=== PATIENT | male | born 1950 | race Caucasian/White ===

== ENCOUNTER 2016-09-28 00:16 | Inpatient (IN) | payer SELFPAY ==
[2016-09-28] MEDS ORDERED: THIAMINE HCL 100 MG TAB PO ONE (00:58)
[2016-09-28] MEDS ORDERED: FOLIC ACID 1 MG TAB PO ONE (00:59)
[2016-09-28 01:03] LABS: % IMMATURE GRANULYOCYTES 0.3 % (0.0-1.1); ABSOLUTE IMMATURE GRANULOCYTES 0.02 10^3/uL (0.00-0.10); ADD DIFF? NO; ADD MORPH? NO; ADD SCAN? NO; ATYPICAL LYMPHOCYTE FLAG 10 (0-99); FRAGMENT RBC FLAG 0 (0-99); HEMATOCRIT 36.5 % (40.0-51.0); HEMOGLOBIN 11.9 g/dL (13.7-17.5); LEFT SHIFT FLG 0 (0-99); LIPEMIA HEMOLYSIS FLAG 80 (0-99); MEAN CELL HEMOGLOBIN 28.5 pg (27.9-34.1); MEAN CELL HEMOGLOBIN CONCENTR. 32.6 g/dL (32.4-36.7); MEAN CELL VOLUME 87.3 fL (81.5-99.8); PLATELET CLUMPS FLAG 0 (0-99); PLATELET COUNT 246 10^3/uL (150-400); RED BLOOD CELL COUNT 4.18 10^6/uL (4.40-6.38)
[2016-09-28 01:08] LABS: ANION GAP 13 mEq/L (8-16); CALCIUM 9.9 mg/dL (8.5-10.4); CARBON DIOXIDE 25 mEq/l (22-31); CHLORIDE 104 mEq/L (97-110); CREATININE 0.9 mg/dL (0.7-1.3); ETHANOL SERUM < 10 mg/dL (0-10); GLOMERULAR FILTRATION RATE > 60; GLUCOSE 113 mg/dL (70-100); SODIUM 142 mEq/L (134-144)
--- NOTE | 2016-09-28 01:15 | EDPHY ---
H & P Stated Complaint: wandering around outside, confused Time Seen by Provider: 09/28/16 00:26 HPI/ROS: HPI The patient presents with confusion. He is brought in by ambulance after he was found wandering, he went into a store a and people there thought he was confused and thus 911 was called. The patient states that he is a alcoholic and he thinks that is what is causing his confusion, he says he last drink 3 days ago. He says that he came here from [place], drove in his car to visit with some friends that he reunited with about 3 days ago while smoking marijuana. He also tells me that is he is here for a wedding of a nephew. He says he lives in a house, but tells me that he rents it, then tells me that his parents own it. He does not work he says and cannot tell me how he received any income. He denies any complaints. On the [facility] database, it appears that he was discharged about 3 days ago from [facility] where he spent 57 days for encephalopathy from longstanding alcohol use. It appears that he was discharged to a facility, though I am not sure which 1. During his hospitalization he was diagnosed with a Proteus cystitis, hypernatremia, thrombocytopenia, hypertension, malnutrition , macrocytic anemia, troponin leak, conjunctivitis. REVIEW OF SYSTEMS Constitutional: No fever, no chills. Eyes: No discharge. ENT: No sore throat. Cardiovascular: No chest pain, no palpitations. Respiratory: No cough, no shortness of breath. Gastrointestinal: No abdominal pain, no vomiting. Genitourinary: No hematuria. Musculoskeletal: No back pain. Skin: No rashes. Neurological: No headache. PMHx: Chronic alcohol abuse, hiatal hernia per his report Soc Hx: Occasional marijuana use, heavy alcohol use, 1 pack per day tobacco smoker PHYSICAL General Appearance: Alert, no distress Eyes: Pupils equal and round no pallor or injection ENT, Mouth: Mucous membranes moist Respiratory: There are no retractions, lungs are clear to auscultation Cardiovascular: Regular rate and rhythm Gastrointestinal: Abdomen is soft and non-tender, no masses, bowel sounds normal Neurological: A&O, moves all extremities, walks with a limp, though gait is steady Skin: Warm and dry, no rashes Musculoskeletal: Neck is supple non tender Extremities: symmetrical, full range of motion Psychiatric: Patient is oriented to person and place, says the date is September 28 2014, confabulating Source: EMS - Personal History Current Tetanus/Diphtheria Vaccine: Unsure Current Tetanus Diphtheria and Acellular Pertussis (TDAP): Unsure - Medical/Surgical History Hx Asthma: No Hx Chronic Respiratory Disease: No Hx Diabetes: No Hx Cardiac Disease: No Hx Renal Disease: No Hx Cirrhosis: No Hx Alcoholism: Yes Hx HIV/AIDS: No Hx Splenectomy or Spleen Trauma: No Other PMH: brain injury. alcoholism - Social History Smoking Status: Current every day smoker Constitutional: Initial Vital Signs Temperature (C) 36.5 C 09/28/16 00:28 Heart Rate 104 H 09/28/16 00:28 Respiratory Rate 18 09/28/16 00:28 Blood Pressure 176/96 H 09/28/16 00:28 O2 Sat (%) 99 09/28/16 00:28 O2 Delivery Mode Room Air Allergies/Adverse Reactions: No Known Allergies Allergy (Unverified 09/28/16 00:30) Home Medications: Medication Instructions Recorded NK [No Known Home Meds] 09/28/16 Medical Decision Making ED Course/Re-evaluation: 1:45 a.m.- I have reassessed the patient, is confusion is unchanged. He is not sure if he recalls meeting me earlier. When asked how he would leave the emergency room, he says he would get in his car and drive home. However, he does not have his wallet, keys, nor know the whereabouts of his car. I feel he is unsuitable for discharge. I am concerned he may have eloped from the facility that he was discharged to from his hospitalization. I have discussed the case with the hospitalist Dr. Vicky Huff. She recommends thiamine IV which I will order for the patient. We plan to admit the patient to the hospital. Differential Diagnosis: This is a 65-year-old man brought in by ambulance for confusion, found wandering outside of a store. He has a longstanding history of alcohol abuse. He denies any current complaints. On exam, he appears to be confabulating and is confused. Upon review of his outside hospital records, he had a very long hospitalization ending with discharge about 3 days ago to some sort of facility. It appears he has left the facility somehow. I do not feel any of his symptoms are acute, probably represent longstanding alcohol abuse. Differential diagnosis includes Wernickes encephalopathy, however he is able to walk with a steady gait. Korsakoff syndrome is also a possibility. Other possibilities for differential diagnosis includes electrolyte disturbance, urinary tract infection, anemia, hypoglycemia. - Data Points Laboratory Results: Laboratory Results 09/28/16 00:28 09/28/16 00:28 09/28/16 09/28/16 09/28/16 00:56 00:28 00:28 WBC 7.35 10^3/uL 10^3/uL (3.80-9.50) RBC 4.18 10^6/uL L 10^6/uL (4.40-6.38) Hgb 11.9 g/dL L g/dL (13.7-17.5) Hct 36.5 % L % (40.0-51.0) MCV 87.3 fL fL (81.5-99.8) MCH 28.5 pg pg (27.9-34.1) MCHC 32.6 g/dL g/dL (32.4-36.7) RDW 15.0 % % (11.5-15.2) Plt Count 246 10^3/uL 10^3/uL (150-400) MPV 10.0 fL fL (8.7-11.7) Neut % (Auto) 64.0 % % (39.3-74.2) Lymph % (Auto) 18.4 % % (15.0-45.0) [place] % (Auto) 11.3 % % (4.5-13.0) Eos % (Auto) 5.6 % % (0.6-7.6) Baso % (Auto) 0.4 % % (0.3-1.7) Nucleat RBC Rel Count 0.0 % % (0.0-0.2) Absolute Neuts (auto) 4.71 10^3/uL 10^3/uL (1.70-6.50) Absolute Lymphs (auto) 1.35 10^3/uL 10^3/uL (1.00-3.00) Absolute Monos (auto) 0.83 10^3/uL H 10^3/uL (0.30-0.80) Absolute Eos (auto) 0.41 10^3/uL H 10^3/uL (0.03-0.40) Absolute Basos (auto) 0.03 10^3/uL 10^3/uL (0.02-0.10) Absolute Nucleated RBC 0.00 10^3/uL 10^3/uL (0-0.01) Immature Gran % 0.3 % % (0.0-1.1) Immature Gran # 0.02 10^3/uL 10^3/uL (0.00-0.10) Sodium 142 mEq/L mEq/L (134-144) Potassium 4.0 mEq/L mEq/L (3.5-5.2) Chloride 104 mEq/L mEq/L (97-110) Carbon Dioxide 25 mEq/l mEq/l (22-31) Anion Gap 13 mEq/L mEq/L (8-16) BUN 24 mg/dL H mg/dL (7-23) Creatinine 0.9 mg/dL mg/dL (0.7-1.3) Estimated GFR > 60 Glucose 113 mg/dL H mg/dL (70-100) Calcium 9.9 mg/dL mg/dL (8.5-10.4) Urine Color PALE YELLOW Urine Appearance CLEAR Urine pH 7.0 (5.0-7.5) Ur Specific [place] 1.005 (1.002-1.030) Urine Protein NEGATIVE (NEGATIVE) Urine Ketones NEGATIVE (NEGATIVE) Urine Blood NEGATIVE (NEGATIVE) Urine Nitrate NEGATIVE (NEGATIVE) Urine Bilirubin NEGATIVE (NEGATIVE) Urine Urobilinogen NEGATIVE EU EU (0.2-1.0) Ur Leukocyte Esterase NEGATIVE (NEGATIVE) Urine Glucose NEGATIVE (NEGATIVE) Urine Opiates Screen NEGATIVE ng/mL ng/mL (NEGATIVE) Urine Barbiturates NEGATIVE ng/mL ng/mL (NEGATIVE) Ur Phencyclidine Scrn NEGATIVE ng/mL ng/mL (NEGATIVE) Ur Amphetamines Screen NEGATIVE ng/mL ng/mL (NEGATIVE) U Benzodiazepines Scrn NEGATIVE ng/mL ng/mL (NEGATIVE) Urine Cocaine Screen NEGATIVE ng/mL ng/mL (NEGATIVE) U Marijuana (THC) Screen NEGATIVE ng/mL ng/mL (NEGATIVE) Ethyl Alcohol < 10 mg/dL mg/dL (0-10) Medications Given: Discontinued Medications Folic Acid (Folic Acid) 1 mg PO EDNOW ONE Stop: 09/28/16 01:00 Last Admin: 02/28/17 01:06 Dose: 1 mg Thiamine HCl (Vitamin B-1) 100 mg PO EDNOW ONE Stop: 09/28/16 00:59 Last Admin: 09/28/16 01:06 Dose: 100 mg Departure - Departure Disposition: [facility] Clinical Impression: Confusion, Chronic alcohol abuse HTN (hypertension) Qualifiers: Hypertension type: essential hypertension Qualified Code(s): I10 - Essential ( primary) hypertension Condition: Fair
[2016-09-28] MEDS: THIAMINE HCL 500 MG in NS 100 ML IV SCH ×2 (02:33→16:14)
[2016-09-28 02:36] LABS: COLOR PALE YELLOW; LEUKOCYTE ESTERASE,URINE NEGATIVE (NEGATIVE); NITRITE,URINE NEGATIVE (NEGATIVE)
[2016-09-28 02:54] LABS: PHENCYCLIDINE URINE BCH < 6 ng/ml (NEGATIVE); PHENCYCLIDINE URINE BCH NEGATIVE (NEGATIVE); TETRAHYDROCANNABINOL URINE < 5 ng/mL (NEGATIVE); TETRAHYDROCANNABINOL URINE NEGATIVE (NEGATIVE)
[2016-09-28] MEDS ORDERED: ONDANSETRON 4 MG/2 ML VIAL IVP PRN (03:58)
[2016-09-28] MEDS ORDERED: LORazepam 2 MG/ML INJ IVP PRN (03:58)
[2016-09-28] MEDS ORDERED: ONDANSETRON DISINTEGRATING 4 MG TAB PO PRN (03:58)
[2016-09-28] MEDS ORDERED: ACETAMINOPHEN 325 MG TAB PO PRN (03:58)
[2016-09-28] MEDS ORDERED: LORazepam 1 MG TAB PO PRN (03:58)
--- NOTE | 2016-09-28 04:11 | PDGENHP ---
History and Physical - Chief Complaint confusion - History of Present Illness 65 yo male with h/o alcohol dependence, recently discharged from [facility] after a 57 day hospitalization due to encephalopathy, thought to be due to alcohol abuse. He had a negative MRI and CT of the brain. He also underwent myocardial nuclear perfusion scan, which revealed a fixed defect, but he had no evidence of ACS. He was also treated for a proteus mirabilis UTI. He denies CP, SOB, abdominal pain or changes in his bowel or bladder habits. He was apparently walking in and out of a store in [place] and appeared confused so a bystander called 911 and he was brought to the ED. In the ED, he denies any specific complaints. He knows where he is, but has a hard time giving me a detailed history of his plan or prior events in the day. Says he is in [place] for a libertarian. He tells me he purchases "the large bottle" of whiskey and this lasts him about 3 days, he has 5-8 whiskey sodas at a time, notes a "high concentration of whiskey" in his drinks. He has a difficult time telling me when his last drink was, says 3 days ago. He was just discharged from [facility] ago. Due to his confusion and lack of a safe discharge plan, he is admitted to the hospital for further management. History Information - Allergies/Home Medication List Allergies/Adverse Reactions: No Known Allergies Allergy (Unverified 09/28/16 00:30) Home Medications: NK [No Known Home Meds] 09/28/16 [Last Taken Unknown] I have personally reviewed and updated: family history, medical history, social history, surgical history - Past Medical History Additional medical history: Alcohol abuse, h/o hypertension, anemia, CAD with h/ o remote 3 v CABG, hepatic steatosis, diverticulosis - Surgical History Reports: no pertinent surgical hx - Family History Positive for: non-pertinent - Social History Smoking Status: Current every day smoker Alcohol Use: Heavy Drug Use: Marijuana Additional social history: Pt unclear about his social situation. Says he is staying in a house his parents own in [facility]. He is not sure where he is staying in [place], says he was going to a libertarian. Was apparently discharged to a facility from [facility] 09/23/2016. Review of Systems ROS: 10pt was reviewed & negative except for what was stated in HPI & below Physical Exam Temp Pulse Resp BP Pulse Ox 36.7 C 81 16 106/50 L 96 09/28/16 03:45 09/28/16 03:45 09/28/16 03:45 09/28/16 03:45 09/28/16 03:45 Constitutional: no apparent distress Eyes: PERRL Ears, Nose, Mouth, Throat: moist mucous membranes Cardiovascular: regular rate and rhythym, no murmur, rub, or gallop Respiratory: no respiratory distress, clear to auscultation Gastrointestinal: normoactive bowel sounds, soft, non-tender abdomen Skin: warm Musculoskeletal: full muscle strength Neurologic: other (alert and oriented to person, place. +digits forward to 6 digits) Psychiatric: poor insight, poor judgement, poor memory Lab Data & Imaging Review 09/28/16 00:28 09/28/16 00:28 WBC 7.35 10^3/uL (3.80-9.50) 09/28/16 00:28 RBC 4.18 10^6/uL (4.40-6.38) L 09/28/16 00:28 Hgb 11.9 g/dL (13.7-17.5) L 09/28/16 00:28 Hct 36.5 % (40.0-51.0) L 09/28/16 00:28 MCV 87.3 fL (81.5-99.8) 09/28/16 00:28 MCH 28.5 pg (27.9-34.1) 09/28/16 00:28 MCHC 32.6 g/dL (32.4-36.7) 09/28/16 00:28 RDW 15.0 % (11.5-15.2) 09/28/16 00:28 Plt Count 246 10^3/uL (150-400) 09/28/16 00:28 MPV 10.0 fL (8.7-11.7) 09/28/16 00:28 Neut % (Auto) 64.0 % (39.3-74.2) 09/28/16 00:28 Lymph % (Auto) 18.4 % (15.0-45.0) 09/28/16 00:28 [place] % (Auto) 11.3 % (4.5-13.0) 09/28/16 00:28 Eos % (Auto) 5.6 % (0.6-7.6) 09/28/16 00:28 Baso % (Auto) 0.4 % (0.3-1.7) 09/28/16 00:28 Nucleat RBC Rel Count 0.0 % (0.0-0.2) 09/28/16 00:28 Absolute Neuts (auto) 4.71 10^3/uL (1.70-6.50) 09/28/16 00:28 Absolute Lymphs (auto) 1.35 10^3/uL (1.00-3.00) 09/28/16 00:28 Absolute Monos (auto) 0.83 10^3/uL (0.30-0.80) H 09/28/16 00:28 Absolute Eos (auto) 0.41 10^3/uL (0.03-0.40) H 09/28/16 00:28 Absolute Basos (auto) 0.03 10^3/uL (0.02-0.10) 09/28/16 00:28 Absolute Nucleated RBC 0.00 10^3/uL (0-0.01) 09/28/16 00:28 Immature Gran % 0.3 % (0.0-1.1) 09/28/16 00: Immature Gran # 0.02 10^3/uL (0.00-0.10) 09/28/16 00:28 Sodium 142 mEq/L (134-144) 09/28/16 00:28 Potassium 4.0 mEq/L (3.5-5.2) 09/28/16 00: Chloride 104 mEq/L (97-110) 09/28/16 00:28 Carbon Dioxide 25 mEq/l (22-31) 09/28/16 00:28 Anion Gap 13 mEq/L (8-16) 09/28/16 00:28 BUN 24 mg/dL (7-23) H 09/28/16 00:28 Creatinine 0.9 mg/dL (0.7-1.3) 09/28/16 00:28 Estimated GFR > 60 09/28/16 00:28 Glucose 113 mg/dL (70-100) H 09/28/16 00:28 Calcium 9.9 mg/dL (8.5-10.4) 09/28/16 00:28 Urine Color PALE YELLOW 09/28/16 00:56 Urine Appearance CLEAR 09/28/16 00:56 Urine pH 7.0 (5.0-7.5) 09/28/16 00:56 Ur Specific [place] 1.005 (1.002-1.030) 09/28/16 00:56 Urine Protein NEGATIVE (NEGATIVE) 09/28/16 00:56 Urine Ketones NEGATIVE (NEGATIVE) 09/28/16 00:56 Urine Blood NEGATIVE (NEGATIVE) 09/28/16 00:56 Urine Nitrate NEGATIVE (NEGATIVE) 09/28/16 00:56 Urine Bilirubin NEGATIVE (NEGATIVE) 09/28/16 00:56 Urine Urobilinogen NEGATIVE EU (0.2-1.0) 09/28/16 00:56 Ur Leukocyte Esterase NEGATIVE (NEGATIVE) 09/28/16 00:56 Urine Glucose NEGATIVE (NEGATIVE) 09/28/16 00:56 Urine Opiates Screen NEGATIVE ng/mL (NEGATIVE) 09/28/16 00:56 Urine Barbiturates NEGATIVE ng/mL (NEGATIVE) 09/28/16 00:56 Ur Phencyclidine Scrn NEGATIVE ng/mL (NEGATIVE) 09/28/16 00:56 Ur Amphetamines Screen NEGATIVE ng/mL (NEGATIVE) 09/28/16 00:56 U Benzodiazepines Scrn NEGATIVE ng/mL (NEGATIVE) 09/28/16 00:56 Urine Cocaine Screen NEGATIVE ng/mL (NEGATIVE) 09/28/16 00:56 U Marijuana (THC) Screen NEGATIVE ng/mL (NEGATIVE) 09/28/16 00:56 Ethyl Alcohol < 10 mg/dL (0-10) 09/28/16 00:28 Assessment & Plan Assessment: Acute / ?Chronic encephalopathy - suspect Wernicke's given heavy alcohol history and recent prolonged hospitalization for alcohol related encephalopathy. -IV Thiamine -Defer imaging at this time as he recently had negative brain MRI and CT. Alcohol abuse - Presumably sober for 57 days at [facility], discharged 4 days ago, says his last drink was 3 days ago. -CIWA monitoring -symptom triggered BZD dosing -CM consulted ?Homelessness - his living situation is unclear. CM consult. Anemia - Mild. ?nutritional vs BM suppression in setting of alcohol abuse. Follow. CAD - no CP or symptoms suggestive of ACS. Continue ASA, statin. He did not tolerate BB in past due to hypotension. DVT PPLX - mod risk based on age, but pt ambulatory, active, will place SCD's and plan for ambulation Full code Dispo - inpt for ongoing IV thiamine needs
[2016-09-28 07:57] LABS: % IMMATURE GRANULYOCYTES 0.2 % (0.0-1.1); ABSOLUTE IMMATURE GRANULOCYTES 0.01 10^3/uL (0.00-0.10); ADD DIFF? NO; ADD MORPH? NO; ADD SCAN? NO; ATYPICAL LYMPHOCYTE FLAG 10 (0-99); FRAGMENT RBC FLAG 0 (0-99); HEMATOCRIT 32.6 % (40.0-51.0); HEMOGLOBIN 10.5 g/dL (13.7-17.5); LEFT SHIFT FLG 0 (0-99); LIPEMIA HEMOLYSIS FLAG 80 (0-99); MEAN CELL HEMOGLOBIN 27.6 pg (27.9-34.1); MEAN CELL HEMOGLOBIN CONCENTR. 32.2 g/dL (32.4-36.7); MEAN CELL VOLUME 85.6 fL (81.5-99.8); MEAN PLATELET VOLUME 9.4 fL (8.7-11.7); PLATELET CLUMPS FLAG 0 (0-99); PLATELET COUNT 246 10^3/uL (150-400); RED BLOOD CELL COUNT 3.81 10^6/uL (4.40-6.38); RED CELL DISTRIBUTION WIDTH 14.7 % (11.5-15.2)
[2016-09-28 08:09] VITALS: RESP 15
[2016-09-28 08:30] LABS: ANION GAP 9 mEq/L (8-16); CALCIUM 9.7 mg/dL (8.5-10.4); CARBON DIOXIDE 24 mEq/l (22-31); CHLORIDE 109 mEq/L (97-110); CREATININE 0.8 mg/dL (0.7-1.3); GLOMERULAR FILTRATION RATE > 60; GLUCOSE 89 mg/dL (70-100); SODIUM 142 mEq/L (134-144)
[2016-09-28] MEDS ORDERED: ASPIRIN 81 MG CHEWABLE TAB PO SCH (09:00)
[2016-09-28] MEDS ORDERED: ATORVASTATIN CALCIUM 40 MG TAB PO SCH (09:00)
[2016-09-28] MEDS ORDERED: FOLIC ACID 1 MG TAB PO SCH (09:00)
[2016-09-28] MEDS ORDERED: FAMOTIDINE 20 MG TAB PO SCH (09:00)
[2016-09-28] MEDS ORDERED: MULTIVITAMINS 1 EACH TAB PO SCH (09:00)
[2016-09-28] MEDS ORDERED: BACITRACIN OINTMENT 1 PACKET TP ONE (09:17)
[2016-09-28 12:48] VITALS: BP 125/65; PULSE 93; TEMP 98.6; O2SAT 93
--- NOTE | 2016-09-28 16:28 | PDIAF ---
- Diagnosis Diagnosis: encephalopathy Code Status: Full Code - Medication Management Discharge Medications: Medications to Continue on Transfer Famotidine [Pepcid 20 MG (*)] 20 mg PO BID #0 tab 09/28/16 [Last Taken Unknown] Thiamine HCl 100 mg PO DAILY #0 tablet 09/28/16 [Last Taken Unknown] Discharge Medications: Refer to the Discharge Home Medication list for PRN reason. - Orders Services needed: Registered Nurse, Master Faculty Neuropsychologist, Physical Therapy, Occupational Therapy Diet Recommendation: no restrictions on diet Diet Texture: Regular Texture Diet - Follow Up Care Current Providers and Referrals: NONE *PRIMARY CARE P,. [Primary Care Provider] - [facility],. [Clinic] -
[2016-09-28] MEDS ORDERED: QUEtiapine FUMARATE 50 MG TAB PO SCH (21:00)
--- NOTE | 2016-09-29 01:10 | GDS ---
DISCHARGE DIAGNOSES: 1. Acute encephalopathy presumed secondary to Wernicke. 2. History of alcohol abuse. 3. Chronic anemia. 4. Coronary artery disease. HISTORY OF PRESENT ILLNESS: This is a 65-year-old male, who was found out in a grocery store acting peculiarly. For details of patient's initial presentation, please see the History and Physical brenda ed 09/28/2016. HOSPITAL COURSE BY ISSUE: Acute encephalopathy. 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 It was unclear based on documentation where he was discharged, but was then found 3 days later in a grocery store acting unusually. The patient was fo und to have an ankle monitor, and it was after seeing that the patient had actually left the monitor ed padron of [facility], the patient was tracked through ankle bracelet and identified as a missing pe rson. He was discharged back to the lock-down unit of his nursing home facility after our Chief of Social Work visited and confirmed the safety of his disposition. MEDICATIONS AT THE TIME OF DISPOSITION: Please reference medication reconciliation printed on 09/28. He will resume his normal medications on return to his skilled nursing. PENDING STUDIES AT THE TIME OF THIS DICTATION: None. TIME SPENT: I spent greater than 30 minutes in the planning and coordination of this discharge. /[id number]/MODL
== END 2016-09-28 17:25 | DRG 896 ==
LOC: F3N 03:51
PROVIDERS: ADMIT Hospitalist; ATTEND Hospitalist
DX: F10.27 Alcohol dependence with alcohol-induced persisting dementia (principal); G93.49 Other encephalopathy; D53.9 Nutritional anemia, unspecified; I25.10 Atherosclerotic heart disease of native coronary artery without angina pectoris; I10 Essential (primary) hypertension; Z72.0 Tobacco use; Z95.1 Presence of aortocoronary bypass graft
CPT/HCPCS: 80307; 97161-GP; 97166-GO; G0480; J3411

== ENCOUNTER 2016-11-13 12:43 | Emergency (ER) | payer MEDICAID, OTHER ==
[~2016-11-13 12:43] MED LIST: risperiDONE 1 MG TAB PO SCH
--- NOTE | 2016-11-13 13:11 | EDPHY ---
H & P Time Seen by Provider: 11/13/16 12:43 HPI/ROS: CHIEF COMPLAINT: Aggressive behavior HISTORY OF PRESENT ILLNESS: History from our discharge summary dated 09/28/2016 , patient, and nurse Carisa at [facility] who I spoke with at 12:56 p.m. apparently the patient is at [facility] with a previous admission at [facility] for alcoholic encephalopathy. At that point he had a negative MRI, he was thought to have Wernicke encephalopathy, but he is becoming increasingly more aggressive since yesterday. According to Carisa he was seen at an emergency department yesterday. She thought it was [facility] but we have no record of the visit then. He was discharged back to them at 10:30 p.m. but since then has been picking, tried to elope, more verbally aggressive, not directable. Last night he was hitting head against the wall and was very agitated saying "Fuck you nigger" to the mirror. On arrival the patient does not know why he is here. EMS reports only that he is here for evaluation of aggressive behavior. REVIEW OF SYSTEMS: Eye: no change in vision ENT: no sore throat Cardiac: no chest pain or syncope Pulmonary: no cough or SOB Abdomen: no vomiting, diarrhea, abdominal pain Musculoskeletal: no back pain Skin: no rash Neuro: no headache Constitutional: no fever : no urinary symptoms A comprehensive 10 point review of systems is otherwise negative aside from elements mentioned in the history of present illness. PAST MEDICAL HISTORY: From the [facility] record includes hypertension, adrenocortical insufficiency, atherosclerotic cardiovascular disease. From [facility] discharge summary dated 09/28/2016 includes alcohol related encephalopathy. Social history: Admits to tobacco, denies recent alcohol. T 36.6 General Appearance: Alert and conversant, cooperative. Eyes: No scleral icterus. Extraocular motion is normal. ENT, Mouth: Normal mucous membranes. No tongue laceration or abrasion. Respiratory: Normal respiratory effort, breath sounds equal, lungs are clear to auscultation. Cardiovascular: Regular rate and rhythm. Gastrointestinal: Abdomen is soft and non tender. Midline scar which the patient says is from a hiatal hernia operation. Neurological: Alert to self and [place], knows the year is "17" but does not know the day of the week or the month. Normally conversant. Face symmetric, normal movement and sensation in all extremities. Not tremulous or ataxic. Skin: Warm and dry, no rashes. Musculoskeletal: No peripheral edema and no joint swelling. Neck good range of motion. Psychiatric: Not agitated. Emergency Department course/MDM: Patient is only oriented x1. Placed on a detainer by myself. Reason is patient is not oriented x3, my clinical judgment he is not capable of making decisions regarding his medical care at this time. Plan for psychiatric evaluation and records requested from [facility]. The patient had a medical screening evaluation performed. There does not appear to be an aute emergent medical or surgical condition which would preclude psychiatric evaluation at this time. Mental health evaluation is requested at 1405. 1415: Discharge summary dated 09/23/[address] Valero reviewed by myself at this time. Patient had protracted hospitalization for encephalopathy thought due to longstanding alcohol use. He was improved on Seroquel. He was discharged on 50 mg oral Seroquel daily. 1643: Patient had psychiatric evaluation. They feel this is a medical problem and not psychiatric. Discussed with Dr. Jose Roa for [facility], who requests that we send the patient back to [facility] and he will adjust his medications starting tonight. I was asked to write a prescription for Risperdal 2.5 mg orally q.12 hours for the next 2 days. Smoking Status: Current every day smoker Constitutional: Initial Vital Signs Heart Rate 100 11/13/16 13:30 Respiratory Rate 16 11/13/16 13:30 Blood Pressure 135/71 H 11/13/16 13:30 O2 Sat (%) 94 11/13/16 13:30 O2 Delivery Mode Room Air Allergies/Adverse Reactions: No Known Allergies Allergy (Unverified 09/28/16 00:30) Home Medications: Medication Instructions Recorded Famotidine [Pepcid 20 MG (*)] 20 mg PO BID #0 tab 09/28/16 Thiamine HCl 100 mg PO DAILY #0 tablet 09/28/16 Risperdal 0.25mg (*) 11/13/16 risperiDONE [Risperdal] 2.5 mg PO Q12 2 Days 11/13/16 Medical Decision Making Differential Diagnosis: Differential considered including but not limited to alcohol intoxication, hypoglycemia, other metabolic, infectious, alcohol-related encephalopathy. - Data Points Laboratory Results: Laboratory Results 11/13/16 13:35 11/13/16 13:35 11/13/16 11/13/16 13:35 13:35 WBC 6.39 10^3/uL 10^3/uL (3.80-9.50) RBC 4.47 10^6/uL 10^6/uL (4.40-6.38) Hgb 11.7 g/dL L g/dL (13.7-17.5) Hct 36.4 % L % (40.0-51.0) MCV 81.4 fL L fL (81.5-99.8) MCH 26.2 pg L pg (27.9-34.1) MCHC 32.1 g/dL L g/dL (32.4-36.7) RDW 15.4 % H % (11.5-15.2) Plt Count 239 10^3/uL 10^3/uL (150-400) MPV 9.5 fL fL (8.7-11.7) Neut % (Auto) 59.5 % % (39.3-74.2) Lymph % (Auto) 20.3 % % (15.0-45.0) [place] % (Auto) 14.2 % H % (4.5-13.0) Eos % (Auto) 5.2 % % (0.6-7.6) Baso % (Auto) 0.6 % % (0.3-1.7) Nucleat RBC Rel Count 0.0 % % (0.0-0.2) Absolute Neuts (auto) 3.80 10^3/uL 10^3/uL (1.70-6.50) Absolute Lymphs (auto) 1.30 10^3/uL 10^3/uL (1.00-3.00) Absolute Monos (auto) 0.91 10^3/uL H 10^3/uL (0.30-0.80) Absolute Eos (auto) 0.33 10^3/uL 10^3/uL (0.03-0.40) Absolute Basos (auto) 0.04 10^3/uL 10^3/uL (0.02-0.10) Absolute Nucleated RBC 0.00 10^3/uL 10^3/uL (0-0.01) Immature Gran % 0.2 % % (0.0-1.1) Immature Gran # 0.01 10^3/uL 10^3/uL (0.00-0.10) Sodium 143 mEq/L mEq/L (134-144) Potassium 4.1 mEq/L mEq/L (3.5-5.2) Chloride 105 mEq/L mEq/L (97-110) Carbon Dioxide 27 mEq/l mEq/l (22-31) Anion Gap 11 mEq/L mEq/L (8-16) BUN 24 mg/dL H mg/dL (7-23) Creatinine 0.9 mg/dL mg/dL (0.7-1.3) Estimated GFR > 60 Glucose 103 mg/dL H mg/dL (70-100) Calcium 9.9 mg/dL mg/dL (8.5-10.4) Ethyl Alcohol < 10 mg/dL mg/dL (0-10) Departure - Departure Clinical Impression: Alcoholic encephalopathy Condition: Good Instructions: Risperidone (By mouth) Referrals: WILLIE HERNANDEZ [Non Staff Provider ()] - As per Instructions (Dr. Roa from Dr. Jennings office will call Yulissa beard to discuss changes to his medications) Prescriptions: risperiDONE [Risperdal] 2.5 mg PO Q12 2 Days
[2016-11-13 13:30] VITALS: RESP 16
[2016-11-13 13:46] LABS: % IMMATURE GRANULYOCYTES 0.2 % (0.0-1.1); ABSOLUTE IMMATURE GRANULOCYTES 0.01 10^3/uL (0.00-0.10); ADD DIFF? NO; ADD MORPH? NO; ADD SCAN? NO; ATYPICAL LYMPHOCYTE FLAG 10 (0-99); FRAGMENT RBC FLAG 0 (0-99); HEMATOCRIT 36.4 % (40.0-51.0); HEMOGLOBIN 11.7 g/dL (13.7-17.5); LEFT SHIFT FLG 0 (0-99); LIPEMIA HEMOLYSIS FLAG 80 (0-99); MEAN CELL HEMOGLOBIN 26.2 pg (27.9-34.1); MEAN CELL HEMOGLOBIN CONCENTR. 32.1 g/dL (32.4-36.7); MEAN CELL VOLUME 81.4 fL (81.5-99.8); MEAN PLATELET VOLUME 9.5 fL (8.7-11.7); PLATELET CLUMPS FLAG 0 (0-99); PLATELET COUNT 239 10^3/uL (150-400); RED BLOOD CELL COUNT 4.47 10^6/uL (4.40-6.38); RED CELL DISTRIBUTION WIDTH 15.4 % (11.5-15.2)
[2016-11-13 13:56] LABS: ANION GAP 11 mEq/L (8-16); CALCIUM 9.9 mg/dL (8.5-10.4); CARBON DIOXIDE 27 mEq/l (22-31); CHLORIDE 105 mEq/L (97-110); CREATININE 0.9 mg/dL (0.7-1.3); ETHANOL SERUM < 10 mg/dL (0-10); GLOMERULAR FILTRATION RATE > 60; GLUCOSE 103 mg/dL (70-100); POTASSIUM 4.1 mEq/L (3.5-5.2); SODIUM 143 mEq/L (134-144)
[2016-11-13 16:37] VITALS: TEMP 98.4
[2016-11-13] MEDS ORDERED: GABAPENTIN 300 MG CAP ONE (18:09)
[2016-11-13] MEDS ORDERED: GABAPENTIN 300 MG CAP PO ONE (18:11)
[2016-11-13 19:38] VITALS: BP 128/73; PULSE 80; O2SAT 94
== END 2016-11-13 19:38 | disposition home or self-care (01) ==
LOC: EDUNIT#
DX: G31.2 Degeneration of nervous system due to alcohol (principal); F17.200 Nicotine dependence, unspecified, uncomplicated; F10.10 Alcohol abuse, uncomplicated
CPT/HCPCS: G0480

== ENCOUNTER 2017-02-04 20:01 | Observation (INO) | payer MEDICAID ==
--- NOTE | 2017-02-04 20:22 | CPEKG ---
Heart Rate: 93 RR Interval: 645 P-R Interval: 152 QRSD Interval: 92 QT Interval: 372 QTC Interval: 463 P [place]: 49 QRS [place]: 8 T Wave [place]: -44 EKG Severity - ABNORMAL ECG - EKG Impression: SINUS RHYTHM EKG Impression: BORDERLINE INFERIOR Q WAVES EKG Impression: TALL R WAVE IN V2, CONSIDER RVH OR PMI EKG Impression: NONSPECIFIC T ABNORMALITIES, INFERIOR LEADS Electronically Signed By: Jose Johnson 04-Feb-2017 22:26:39
--- NOTE | 2017-02-04 20:24 | EDPHY ---
H & P Time Seen by Provider: 02/04/17 20:06 HPI/ROS: Chief complaint. Altered mental status HPI. 66-year-old male here by EMS from [facility]. Apparently increased confusion over 1 week. He has been weak for 1 week. The patient can tell me his name and he says" I am in the hospital". However he does not know what hospital the day of the week, the month, the year. He denies headache, chest pain, shortness of breath, abdominal pain. Apparently has been no trauma. The staff has decreased his respiratory all in response to his confusion and weakness over the week but there has been no change. Apparently no fever or illness. He has been compliant with medication for November Constitutional. Generalized weakness Eyes. no problems with vision ENT. no sore throat, no nasal drainage Cardiovascular. no chest pain Respiratory. no shortness of breath, no cough Abdominal. no abdominal pain, no nausea/vomiting, no diarrhea . no problems urinating MS. no calf pain/swelling, no neck/back pain, no joint pain Skin. no rash Lymph. no swollen glands Neuro. Increased confusion Past Medical/Surgical History: Past medical history significant for alcoholism, traumatic brain injury, worsen Achilles encephalopathy, hypertension, hyperkalemia, adrenocortical insufficiency and past cardiac surgery Social History: Single, daily smoker, no recent alcohol Smoking Status: Current every day smoker Physical Exam: General Appearance: Alert well-developed male no distress vital signs are stable Eyes: Pupils equal and round no pallor or injection. ENT, Mouth: Mucous membranes are moist. Respiratory: There are no retractions, lungs are clear to auscultation. Cardiovascular: Regular rate and rhythm. Gastrointestinal: Abdomen is soft and nontender, no masses, bowel sounds normal. Neurological: Awake and alert, sensory and motor exams grossly normal. Skin: Warm and dry, no rashes. Musculoskeletal: Neck is supple nontender. Extremities symmetrical, full range of motion. Psychiatric: Patient is oriented to person Constitutional: Initial Vital Signs Temperature (C) 36.7 C 02/04/17 20:15 Heart Rate 60 02/04/17 20:15 Respiratory Rate 20 02/04/17 20:15 Blood Pressure 140/60 H 02/04/17 20:15 O2 Delivery Mode Room Air Allergies/Adverse Reactions: No Known Allergies Allergy (Unverified 09/28/16 00:30) Home Medications: Medication Instructions Recorded Thiamine HCl 100 mg PO DAILY #0 tablet 09/28/16 Risperdal 0.25mg (*) 11/13/16 risperiDONE [Risperdal] 2.5 mg PO Q12 2 Days 11/13/16 ACETAMINOPHEN 02/04/17 Aspirin 81mg (*) 02/04/17 Atorvastatin Calcium 02/04/17 Bisacodyl 02/04/17 Debrox Ear drops (*) 02/04/17 FOLIC ACID 02/04/17 Melatonin 02/04/17 Senokot 02/04/17 Thera M Plus Tablet (*) 02/04/17 Medical Decision Making - Diagnostics EKG Interpretation: EKG interpreted by me shows normal sinus rhythm with normal interval. There is left axis deviation. QRS is otherwise normal there is no significant ST elevation or depression. No arrhythmia. The rate is 93 Imaging Results: Imaging Impressions Head CT 02/04/17 20:43 Impression: 1. No acute intracranial process. 2. Minimal ethmoid and right maxillary sinus disease. Findings discussed with Emergency Department physician, Jose Johnson M.D., at February 04, [address] reviewed by me and discussed with Dr. Koo is normal One-view chest x-ray interpreted by me is normal Procedures: IV normal saline, monitor ED Course/Re-evaluation: Patient's workup is normal at this point. I have considered electrolyte abnormalities, sepsis and infection, intracranial bleeding. It is possibly he has taken too many medications are not enough medications. He certainly has a history of traumatic brain injury and Wernicke's encephalopathy. However he is on thigh min. We are awaiting tox screen. I consulted and discussed the case with Dr. Powell, hospitalist, who agrees to the admission Differential Diagnosis: Please see above discussion - Data Points Laboratory Results: Laboratory Results 02/04/17 20:10 02/04/17 20:10 02/04/17 02/04/17 20:10 20:10 WBC 9.34 10^3/uL 10^3/uL (3.80-9.50) RBC 4.29 10^6/uL L 10^6/uL (4.40-6.38) Hgb 11.4 g/dL L g/dL (13.7-17.5) Hct 34.9 % L % (40.0-51.0) MCV 81.4 fL L fL (81.5-99.8) MCH 26.6 pg L pg (27.9-34.1) MCHC 32.7 g/dL g/dL (32.4-36.7) RDW 14.8 % % (11.5-15.2) Plt Count 226 10^3/uL 10^3/uL (150-400) MPV 10.6 fL fL (8.7-11.7) Neut % (Auto) 74.8 % H % (39.3-74.2) Lymph % (Auto) 12.2 % L % (15.0-45.0) [place] % (Auto) 9.5 % % (4.5-13.0) Eos % (Auto) 2.9 % % (0.6-7.6) Baso % (Auto) 0.3 % % (0.3-1.7) Nucleat RBC Rel Count 0.0 % % (0.0-0.2) Absolute Neuts (auto) 6.98 10^3/uL H 10^3/uL (1.70-6.50) Absolute Lymphs (auto) 1.14 10^3/uL 10^3/uL (1.00-3.00) Absolute Monos (auto) 0.89 10^3/uL H 10^3/uL (0.30-0.80) Absolute Eos (auto) 0.27 10^3/uL 10^3/uL (0.03-0.40) Absolute Basos (auto) 0.03 10^3/uL 10^3/uL (0.02-0.10) Absolute Nucleated RBC 0.00 10^3/uL 10^3/uL (0-0.01) Immature Gran % 0.3 % % (0.0-1.1) Immature Gran # 0.03 10^3/uL 10^3/uL (0.00-0.10) Sodium 141 mEq/L mEq/L (134-144) Potassium 3.8 mEq/L mEq/L (3.5-5.2) Chloride 106 mEq/L mEq/L (97-110) Carbon Dioxide 22 mEq/l mEq/l (22-31) Anion Gap 13 mEq/L mEq/L (8-16) BUN 26 mg/dL H mg/dL (7-23) Creatinine 1.2 mg/dL mg/dL (0.7-1.3) Estimated GFR > 60 Glucose 160 mg/dL H mg/dL (70-100) Calcium 10.1 mg/dL mg/dL (8.5-10.4) Troponin I < 0.012 ng/mL ng/mL (0-0.034) Ethyl Alcohol < 10 mg/dL mg/dL (0-10) Medications Given: Discontinued Medications Sodium Chloride (Ns) 1,000 mls @ 0 mls/hr IV ONCE ONE; Wide Open PRN Reason: Protocol Stop: 02/04/17 20:44 Last Admin: 02/04/17 21:06 Dose: 1,000 mls Sodium Chloride (Ns) 1,000 mls @ 0 mls/hr IV ONCE ONE; Wide Open PRN Reason: Protocol Stop: 02/04/17 21:11 Last Admin: 02/04/17 21:23 Dose: 1,000 mls Departure - Departure Disposition: [facility] Inpatient Acute Clinical Impression: Altered mental status Condition: Fair Referrals: Patient,NotPresent [Unknown] - As per Instructions
[2017-02-04] MEDS ORDERED: NS 1,000 ML IV ONE ×2 (20:43→21:10)
[2017-02-04 20:49] LABS: % IMMATURE GRANULYOCYTES 0.3 % (0.0-1.1); ABSOLUTE IMMATURE GRANULOCYTES 0.03 10^3/uL (0.00-0.10); ADD DIFF? NO; ADD MORPH? NO; ADD SCAN? NO; ATYPICAL LYMPHOCYTE FLAG 10 (0-99); FRAGMENT RBC FLAG 0 (0-99); HEMATOCRIT 34.9 % (40.0-51.0); HEMOGLOBIN 11.4 g/dL (13.7-17.5); LEFT SHIFT FLG 0 (0-99); LIPEMIA HEMOLYSIS FLAG 80 (0-99); MEAN CELL HEMOGLOBIN 26.6 pg (27.9-34.1); MEAN CELL HEMOGLOBIN CONCENTR. 32.7 g/dL (32.4-36.7); MEAN CELL VOLUME 81.4 fL (81.5-99.8); MEAN PLATELET VOLUME 10.6 fL (8.7-11.7); PLATELET CLUMPS FLAG 0 (0-99); PLATELET COUNT 226 10^3/uL (150-400); RED BLOOD CELL COUNT 4.29 10^6/uL (4.40-6.38); RED CELL DISTRIBUTION WIDTH 14.8 % (11.5-15.2)
[2017-02-04 20:55] LABS: ANION GAP 13 mEq/L (8-16); CALCIUM 10.1 mg/dL (8.5-10.4); CARBON DIOXIDE 22 mEq/l (22-31); CHLORIDE 106 mEq/L (97-110); CREATININE 1.2 mg/dL (0.7-1.3); ETHANOL SERUM < 10 mg/dL (0-10); GLOMERULAR FILTRATION RATE > 60; GLUCOSE 160 mg/dL (70-100); POTASSIUM 3.8 mEq/L (3.5-5.2); SODIUM 141 mEq/L (134-144)
[2017-02-04 21:07] LABS: TROPONIN I < 0.012 ng/mL (0-0.034)
[2017-02-04 23:14] LABS: COLOR YELLOW; LEUKOCYTE ESTERASE,URINE NEGATIVE (NEGATIVE); NITRITE,URINE NEGATIVE (NEGATIVE)
[2017-02-04 23:18] LABS: MUCUS TRACE /lpf (NONE-1+)
[2017-02-05] MEDS ORDERED: ONDANSETRON 4 MG/2 ML VIAL IVP PRN (01:06)
[2017-02-05] MEDS ORDERED: ACETAMINOPHEN 325 MG TAB PO PRN (01:06)
[2017-02-05] MEDS ORDERED: NS 1,000 ML IV SCH (01:15)
--- NOTE | 2017-02-05 02:08 | GHP ---
[f rep st] HISTORY AND PHYSICAL DATE OF ADMISSION: 02/04/2017 CHIEF COMPLAINT: Confusion. HISTORY OF PRESENT ILLNESS: The patient is a 66-year-old male, resident of [facility], who presents via EMS for altered mental status. Limited history is available at this time, but by report he had been noted to have increasing confusion for the last 1 week. Patient is awake and conversant, cooperative, and denies any complaints. He is a poor historian. Knows he is in the hospital , but thinks it is [place] 2014. Denies any acute pain, shortness of breath, infectious symptoms, and he is wondering why they sent him here. He seems very confused when any questioning regarding his residence at [facility]. PAST MEDICAL HISTORY: 1. Wernicke's encephalopathy. 2. 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 3. Coronary artery disease, status post CABG. 4. Hypertension. MEDICATIONS: Please see computer record for full detailed list. ALLERGIES: No known drug allergies. SOCIAL HISTORY: Reportedly a smoker. He also says he drinks daily alcohol and also smokes marijuana. Although not clear whether that is recent history. Tox screen is negative for marijuana. He lives at [facility]. REVIEW OF SYSTEMS: Complete review of systems obtained. Review of systems is negative regarding constitutional, HEENT, GI, pulmonary, cardiovascular, , hematology, skin, musculoskeletal, endocrine, psych, except for positives and negatives as noted in HPI. FAMILY HISTORY: Unobtainable due to altered mental status. PHYSICAL EXAMINATION: GENERAL: Well-developed, well-nourished male, in no acute distress. VITAL SIGNS: Temperature is 36.7, pulse 95, blood pressure 100 /67, saturating 94% on room air. EYES: Normal conjunctivae. Pupils react to light. ENT: Normal ears and nose. Hearing intact. Normal lips and teeth. Oropharynx moist. Positive oral thrush on the tongue. NECK: Trachea midline. No thyromegaly. CHEST: Normal effort. LUNGS: Clear to auscultation bilaterally. CARDIOVASCULAR: Regular rhythm. No murmur. No lower extremity edema. ABDOMEN: Soft, nontender. No hepatosplenomegaly. SKIN: Warm, dry, intact, without rash. MUSCULOSKELETAL: No cyanosis or clubbing. Strength is 5 /5 upper and lower extremities. NEUROLOGIC: Cranial nerves intact. Normal sensation light touch. PSYCH: Alert and oriented x1. Awake. Cooperative without agitation. Poor judgment and insight. Poor memory. LABORATORY DATA: White count 9.34, hematocrit 34.9, platelets 226. Sodium 141 , potassium 3.6, chloride 106, bicarb 22, BUN 26, creatinine 1.2, glucose 160. Troponins negative. Urinalysis is negative. Tox screen is negative. Head CT is negative. Chest x-ray is negative. EKG, viewed by me. My personal interpretation is normal sinus rhythm. No ST-T wave changes consistent with acute ischemia. ASSESSMENT/PLAN: 1. Encephalopathy: His baseline is unclear, but according to [facility] there has been an acute change for the last 1 week. He has a nonfocal exam. I , therefore, doubt acute stroke. His medical evaluation is otherwise unremarkable. I doubt tox involvement as he is in a controlled environment at [facility]. He will be treated supportively. Need to contact [facility] in the morning for more information regarding this acute change and what they were concerned about. 2. Wernicke's encephalopathy and dementia: A waxing and waning course of mental status is likely consistent with his chronic diagnosis, and with his otherwise unremarkable examination that is likely the cause. 3. Coronary artery disease, status post CABG. Nothing to suggest acute ischemia. 4. Oral thrush: Will start him on nystatin and check hemoglobin A1c. 5. Anemia: Will check iron studies. CODE STATUS: Full. ADMISSION STATUS: Will admit to observation as do not see much medical acute going on at this time, but will await further information DVT PROPHYLAXIS: He is high risk. Will place on subcu [facility]. /[id number]/MODL MTDD
[2017-02-05] MEDS: NYSTATIN SUSP 500000 UNIT/5 ML UDCUP PO SCH ×2 (04:51→12:17)
[2017-02-05 05:31] LABS: % IMMATURE GRANULYOCYTES 0.3 % (0.0-1.1); ABSOLUTE IMMATURE GRANULOCYTES 0.02 10^3/uL (0.00-0.10); ADD DIFF? NO; ADD MORPH? NO; ADD SCAN? NO; ATYPICAL LYMPHOCYTE FLAG 0 (0-99); FRAGMENT RBC FLAG 0 (0-99); HEMATOCRIT 34.2 % (40.0-51.0); LEFT SHIFT FLG 0 (0-99); LIPEMIA HEMOLYSIS FLAG 80 (0-99); MEAN CELL HEMOGLOBIN 26.5 pg (27.9-34.1); MEAN CELL HEMOGLOBIN CONCENTR. 32.2 g/dL (32.4-36.7); MEAN CELL VOLUME 82.4 fL (81.5-99.8); MEAN PLATELET VOLUME 10.4 fL (8.7-11.7); PLATELET CLUMPS FLAG 0 (0-99); PLATELET COUNT 197 10^3/uL (150-400); RED BLOOD CELL COUNT 4.15 10^6/uL (4.40-6.38); RED CELL DISTRIBUTION WIDTH 14.6 % (11.5-15.2)
[2017-02-05 05:54] LABS: ALANINE AMINOTRANSFERASE 27 IU/L (21-72); ALBUMIN 3.4 g/dL (3.5-5.0); ALKALINE PHOSPHATASE 78 IU/L (38-126); ANION GAP 12 mEq/L (8-16); ASPARTATE AMINOTRANSFERASE 24 IU/L (17-59); BILIRUBIN,TOTAL 0.8 mg/dL (0.1-1.4); BILIRUBIN-CONJUGATED 0.2 mg/dL (0.0-0.5); BILIRUBIN-UNCONJUGATED 0.6 mg/dL (0.0-1.1); CALCIUM 9.2 mg/dL (8.5-10.4); CARBON DIOXIDE 21 mEq/l (22-31); CHLORIDE 110 mEq/L (97-110); GLOMERULAR FILTRATION RATE > 60; GLUCOSE 90 mg/dL (70-100); MAGNESIUM 1.8 mg/dL (1.6-2.3); POTASSIUM 3.7 mEq/L (3.5-5.2); SODIUM 143 mEq/L (134-144); TOTAL PROTEIN 6.1 g/dL (6.3-8.2)
[2017-02-05 06:04] LABS: % SATURATION 10 % (20-55); TOTAL IRON BINDING CAPACITY 287 ug/dL (260-490)
[2017-02-05 07:32] VITALS: BP 140/81; PULSE 88; RESP 18; TEMP 97.6; O2SAT 98
[2017-02-05] MEDS ORDERED: ENOXAPARIN 40 MG/0.4 ML SYR SC SCH (09:00)
--- NOTE | 2017-02-05 13:38 | PDIAF ---
- Diagnosis Diagnosis: altered mental status Code Status: Full Code - Medication Management Discharge Medications: Medications to Continue on Transfer Thiamine HCl 100 mg PO DAILY #0 tablet 09/28/16 [Last Taken 02/04/17] Acetaminophen [Tylenol 325mg (*)] 650 mg PO Q4 PRN 02/04/17 [Last Taken Unknown] Aspirin [Aspirin 81mg (*)] 81 mg PO DAILY 02/04/17 [Last Taken 02/04/17] Atorvastatin Calcium [Lipitor 40 mg (*)] 40 mg PO HS 02/04/17 [Last Taken ] Bisacodyl [Dulcolax] 10 mg RC DAILY PRN 02/04/17 [Last Taken Unknown] Carbamide Peroxide [Debrox Ear drops (*)] 10 drop EACHEAR HS 02/04/17 [Last Taken 02/04/17] Folic Acid 0.8 mg PO DAILY 02/04/17 [Last Taken 02/04/17] Melatonin [Melatonin 3 MG (*)] 3 mg PO HS 02/04/17 [Last Taken 02/04/17] Multivitamins [Multivitamin (*)] 1 each PO DAILY 02/04/17 [Last Taken 02/04/17] Sennosides [Senokot] 8.6 mg PO BID 02/04/17 [Last Taken 02/04/17] risperiDONE [Risperdal] 0.5 mg PO Q12 2 Days 02/05/17 [Last Taken Unknown] Discharge Medications: Refer to the Discharge Home Medication list for PRN reason. - Follow Up Care Current Providers and Referrals: Patient,NotPresent [Unknown] - As per Instructions
--- NOTE | 2017-02-05 14:18 | GDS ---
[f rep st] DISCHARGE SUMMARY DISCHARGE DIAGNOSES: 1. Acute encephalopathy due to medications. 2. Wernicke encephalopathy due to chronic alcoholism. HISTORY: This is a 66-year-old male who has a history of Wernicke encephalopathy. He has been at [facility] for several months now. He did have some aggressiveness previously and was placed on r isperidone. His family said that since then, he had been very different and quite somnolent when [facility] visited. Apparently, he had been this way for about a week and was sent to the emergency departm ent. HOSPITAL COURSE: Workup for infectious and metabolic symptoms were all negative. With discontinuat ion of his Risperdal, he is probably at baseline. He is communicative, although forgetful. DISPOSITION: We will be discharging him back to nursing home and reducing the dose of risperidon e to 0.5 mg b.i.d. /[id number]/MODL
[2017-02-07 00:33] LABS: HEMOGLOBIN A1C 5.7 % (4.0-6.0)
== END 2017-02-05 16:00 ==
LOC: EDUNIT# → INTOOBSV 21:57 → F3E 02-05 00:33
PROVIDERS: ADMIT Internal Medicine; ATTEND Internal Medicine
DX: G93.41 Metabolic encephalopathy (principal); E51.2 Wernicke's encephalopathy; I25.10 Atherosclerotic heart disease of native coronary artery without angina pectoris; I10 Essential (primary) hypertension; F10.97 Alcohol use, unspecified with alcohol-induced persisting dementia; D64.9 Anemia, unspecified; B37.0 Candidal stomatitis; T43.505A Adverse effect of unspecified antipsychotics and neuroleptics, initial encounter; Z95.1 Presence of aortocoronary bypass graft
CPT/HCPCS: 70450; 71010; 93005; 97161; 97165; G0378; G8987; G8988; 80305; G0480; J1650

== ENCOUNTER 2017-02-15 09:20 | Emergency (ER) | payer MEDICAID ==
--- NOTE | 2017-02-15 09:35 | CPEKG ---
Heart Rate: 63 RR Interval: 952 P-R Interval: 144 QRSD Interval: 92 QT Interval: 444 QTC Interval: 455 P [place]: 41 QRS [place]: 22 T Wave [place]: -22 EKG Severity - ABNORMAL ECG - EKG Impression: SINUS RHYTHM EKG Impression: BORDERLINE INFERIOR Q WAVES EKG Impression: Unchanged from prior EKG Electronically Signed By: Red Pepe 15-Feb-2017 12:12:30
--- NOTE | 2017-02-15 09:42 | EDPHY ---
H & P Stated Complaint: chest pain, AMS Time Seen by Provider: 02/15/17 09:36 HPI/ROS: CHIEF COMPLAINT: Reported chest pain and altered mental status HISTORY OF PRESENT ILLNESS: The patient has a history of Wernicke's encephalopathy from chronic alcohol use. He presents to the ED from his shelter facility with reported chest pain and altered mental status. The patient was admitted to the hospital approximately 10 days ago with similar complaints. He had an extensive workup at that point time which demonstrated no evidence of a structural, infectious or metabolic explanation for his symptoms. It was felt that his presentation was secondary to his Risperdal dose. In the ED today, the patient is unable to provide much history. He currently denies any complaints of acute pain. REVIEW OF SYSTEMS: A comprehensive 10 point review of systems is otherwise negative aside from elements mentioned in the history of present illness. Source: Family - Personal History Current Tetanus/Diphtheria Vaccine: Yes Current Tetanus Diphtheria and Acellular Pertussis (TDAP): Yes - Medical/Surgical History Hx Asthma: No Hx Chronic Respiratory Disease: No Hx Diabetes: No Hx Cardiac Disease: No Hx Renal Disease: No Hx Cirrhosis: No Hx Alcoholism: Yes Hx HIV/AIDS: No Hx Splenectomy or Spleen Trauma: No Other PMH: PMHx: brain injury, alcoholism, Wernicke's encephalopathy, tobacco use, HTN, hypokalemia, nutritional anemia, unspecified adrenocortical insufficiency. PSHx: unk cardiac surgery - Social History Smoking Status: Current every day smoker - Physical Exam Exam: General Appearance: Alert, disheveled, no acute distress Eyes: Pupils equal and round no pallor or injection ENT, Mouth: Mucous membranes moist Respiratory: There are no retractions, lungs are clear to auscultation Cardiovascular: Regular rate and rhythm Gastrointestinal: Abdomen is soft and nontender, no masses, bowel sounds normal Neurological: 5/5 strength all 4 extremities, cranial nerves 2-12 intact, no symptoms of withdrawal present Skin: Warm and dry, no rashes Musculoskeletal: Neck is supple nontender Extremities: symmetrical, full range of motion Psychiatric: Alert and oriented x1 which I suspect is baseline, non agitated Constitutional: Initial Vital Signs Temperature (C) 36.7 C 02/15/17 09:32 Heart Rate 63 02/15/17 09:32 Respiratory Rate 15 02/15/17 09:32 Blood Pressure 90/66 L 02/15/17 09:32 O2 Sat (%) 98 02/15/17 09:32 O2 Delivery Mode Room Air Allergies/Adverse Reactions: No Known Allergies Allergy (Verified 02/15/17 09:29) Home Medications: Medication Instructions Recorded Thiamine HCl 100 mg PO DAILY #0 tablet 09/28/16 Acetaminophen [Tylenol 325mg (*)] 650 mg PO Q4 PRN 02/04/17 Aspirin [Aspirin 81mg (*)] 81 mg PO DAILY 02/04/17 Atorvastatin Calcium [Lipitor 40 40 mg PO HS 02/04/17 mg (*)] Bisacodyl [Dulcolax] 10 mg RC DAILY PRN 02/04/17 Carbamide Peroxide [Debrox Ear 10 drop EACHEAR HS 02/04/17 drops (*)] Folic Acid 0.8 mg PO DAILY 02/04/17 Melatonin [Melatonin 3 MG (*)] 3 mg PO HS 02/04/17 Multivitamins [Multivitamin (*)] 1 each PO DAILY 02/04/17 Sennosides [Senokot] 8.6 mg PO BID 02/04/17 risperiDONE [Risperdal] 0.5 mg PO Q12 2 Days 02/05/17 Aspirin 81mg (*) 02/15/17 LORAZEPAM 02/15/17 Potassium 02/15/17 Propranolol HCl 02/15/17 Remeron 02/15/17 Medical Decision Making ED Course/Re-evaluation: I reviewed the patient's past medical records. The patient is unable to provide history likely secondary to his chronic or acute encephalopathy. The patient's laboratory studies are within normal limits. I reviewed the results of his prior hospitalization for 1 week ago. At that point time he had an extensive workup of this condition. At this point time I doubt the patient's symptoms are explained by an acute process. The patient's urinalysis, laboratory studies continued to be within normal limits. I do feel the patient can be discharged back to his shelter facility for further care. The patient's EKG demonstrates no evidence of acute changes. His troponin is normal. Differential Diagnosis: Differential diagnosis includes acute coronary syndrome, metabolic abnormality, dehydration, medication side effect, urinary tract infection - Data Points Laboratory Results: Laboratory Results 02/15/17 09:00 02/15/17 09:00 02/15/17 02/15/17 02/15/17 11:54 09:00 09:00 WBC 11.38 10^3/uL H 10^3/uL (3.80-9.50) RBC 4.90 10^6/uL 10^6/uL (4.40-6.38) Hgb 13.0 g/dL L g/dL (13.7-17.5) Hct 40.2 % % (40.0-51.0) MCV 82.0 fL fL (81.5-99.8) MCH 26.5 pg L pg (27.9-34.1) MCHC 32.3 g/dL L g/dL (32.4-36.7) RDW 14.4 % % (11.5-15.2) Plt Count 242 10^3/uL 10^3/uL (150-400) MPV 11.0 fL fL (8.7-11.7) Neut % (Auto) 70.2 % % (39.3-74.2) Lymph % (Auto) 13.8 % L % (15.0-45.0) [place] % (Auto) 12.7 % % (4.5-13.0) Eos % (Auto) 2.5 % % (0.6-7.6) Baso % (Auto) 0.4 % % (0.3-1.7) Nucleat RBC Rel Count 0.0 % % (0.0-0.2) Absolute Neuts (auto) 7.99 10^3/uL H 10^3/uL (1.70-6.50) Absolute Lymphs (auto) 1.57 10^3/uL 10^3/uL (1.00-3.00) Absolute Monos (auto) 1.45 10^3/uL H 10^3/uL (0.30-0.80) Absolute Eos (auto) 0.29 10^3/uL 10^3/uL (0.03-0.40) Absolute Basos (auto) 0.04 10^3/uL 10^3/uL (0.02-0.10) Absolute Nucleated RBC 0.00 10^3/uL 10^3/uL (0-0.01) Immature Gran % 0.4 % % (0.0-1.1) Immature Gran # 0.04 10^3/uL 10^3/uL (0.00-0.10) Sodium 140 mEq/L mEq/L (134-144) Potassium 5.0 mEq/L mEq/L (3.5-5.2) Chloride 102 mEq/L mEq/L (97-110) Carbon Dioxide 23 mEq/l mEq/l (22-31) Anion Gap 15 mEq/L mEq/L (8-16) BUN 24 mg/dL H mg/dL (7-23) Creatinine 1.1 mg/dL mg/dL (0.7-1.3) Estimated GFR > 60 Glucose 98 mg/dL mg/dL (70-100) Calcium 9.8 mg/dL mg/dL (8.5-10.4) Troponin I < 0.012 ng/mL ng/mL (0-0.034) Urine Color YELLOW Urine Appearance CLEAR Urine pH 6.0 (5.0-7.5) Ur Specific [place] 1.010 (1.002-1.030) Urine Protein NEGATIVE (NEGATIVE) Urine Ketones NEGATIVE (NEGATIVE) Urine Blood NEGATIVE (NEGATIVE) Urine Nitrate NEGATIVE (NEGATIVE) Urine Bilirubin NEGATIVE (NEGATIVE) Urine Urobilinogen NEGATIVE EU EU (0.2-1.0) Ur Leukocyte Esterase NEGATIVE (NEGATIVE) Urine Glucose NEGATIVE (NEGATIVE) Medications Given: Discontinued Medications Sodium Chloride (Ns) 1,000 mls @ 0 mls/hr IV ONCE ONE PRN Reason: Wide Open Stop: 02/15/17 10:48 Last Admin: 02/15/17 10:49 Dose: 1,000 mls Departure - Departure Disposition: Home, Routine, Self-Care Clinical Impression: Wernicke encephalopathy Condition: Fair Instructions: Alcohol Intoxication (ED) Additional Instructions: 1. Return to the ED for severe pain, fever, vomiting or other concerns. 2. Follow up with your primary care provider as scheduled. 3. EKG testing and troponin testing demonstrate no evidence of a heart attack. 4. Urinalysis and laboratory studies are within normal limits.
[2017-02-15 09:50] LABS: % IMMATURE GRANULYOCYTES 0.4 % (0.0-1.1); ABSOLUTE IMMATURE GRANULOCYTES 0.04 10^3/uL (0.00-0.10); ADD DIFF? NO; ADD MORPH? NO; ADD SCAN? NO; ATYPICAL LYMPHOCYTE FLAG 0 (0-99); FRAGMENT RBC FLAG 0 (0-99); HEMATOCRIT 40.2 % (40.0-51.0); LEFT SHIFT FLG 0 (0-99); LIPEMIA HEMOLYSIS FLAG 80 (0-99); MEAN CELL HEMOGLOBIN 26.5 pg (27.9-34.1); MEAN CELL HEMOGLOBIN CONCENTR. 32.3 g/dL (32.4-36.7); PLATELET CLUMPS FLAG 10 (0-99); PLATELET COUNT 242 10^3/uL (150-400); RED CELL DISTRIBUTION WIDTH 14.4 % (11.5-15.2)
[2017-02-15 09:55] LABS: ANION GAP 15 mEq/L (8-16); CALCIUM 9.8 mg/dL (8.5-10.4); CARBON DIOXIDE 23 mEq/l (22-31); CHLORIDE 102 mEq/L (97-110); CREATININE 1.1 mg/dL (0.7-1.3); GLOMERULAR FILTRATION RATE > 60; GLUCOSE 98 mg/dL (70-100); SODIUM 140 mEq/L (134-144)
[2017-02-15 10:06] LABS: TROPONIN I < 0.012 ng/mL (0-0.034)
[2017-02-15] MEDS ORDERED: NS 1,000 ML IV ONE (10:47)
[2017-02-15 12:24] LABS: COLOR YELLOW; LEUKOCYTE ESTERASE,URINE NEGATIVE (NEGATIVE); NITRITE,URINE NEGATIVE (NEGATIVE)
[2017-02-15 13:59] VITALS: BP 124/70; PULSE 76
[2017-02-15 15:11] VITALS: RESP 16; TEMP 97.5; O2SAT 96
== END 2017-02-15 15:10 | disposition home or self-care (01) ==
LOC: EDUNIT#
DX: E51.2 Wernicke's encephalopathy (principal); I10 Essential (primary) hypertension; F17.200 Nicotine dependence, unspecified, uncomplicated; Z79.82 Long term (current) use of aspirin

== ENCOUNTER 2017-07-23 20:56 | Emergency (ER) | payer MEDICAID ==
[2017-07-23 21:06] VITALS: RESP 16
[2017-07-23 21:35] LABS: PLATELET COUNT 220 10^3/uL (150-400)
--- NOTE | 2017-07-23 21:44 | EDPHY ---
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 PSHx: unk cardiac surgery - Social History Smoking Status: Current every day smoker HPI/ROS: Chief complaint: Blurry vision History of present illness: This is a 66-year-old male who is brought to the emergency department by EMS for evaluation of blurry vision. Patient reports the onset of symptoms earlier today. He does states everything seems out of focus. He denies precipitating factors. He denies alleviating or aggravating factors. He denies other associated signs or symptoms including no fevers, no cold symptoms, no trauma, no headache, no paresthesias, no weakness or paralysis , no bowel or bladder dysfunction, no facial field defects, no floaters etc. Review of systems: A 10 point review of systems was obtained and other than described above was negative (Alexis Davis) - Physical Exam Exam: General Appearance: Alert, no distress. Eyes: Periorbital tissue unremarkable. No discharge from eyes. Pupils equal and round no pallor or injection. EOM intact. Visual ledezma intact. Red reflex present bilaterally. Funduscopic exam grossly unremarkable. ENT, Mouth: Mucous membranes moist. Respiratory: There are no retractions, lungs are clear to auscultation. Cardiovascular: Regular rate and rhythm. Gastrointestinal: Abdomen is soft and non tender, no masses, bowel sounds normal. Neurological: Alert and oriented. Cranial nerves 2-12 grossly intact. Strength and sensation intact and symmetrical. Skin: Warm and dry, no rashes. Musculoskeletal: Neck is supple non tender. Extremities are symmetrical, full range of motion. Psychiatric: There is no agitation. (Alexis Davis) Constitutional: Initial Vital Signs Temperature (C) 36.6 C 07/23/17 21:03 Heart Rate 80 07/23/17 21:03 Respiratory Rate 16 07/23/17 21:03 Blood Pressure 179/97 H 07/23/17 21:03 O2 Sat (%) 96 07/23/17 21:03 O2 Delivery Mode Room Air Allergies/Adverse Reactions: No Known Allergies Allergy (Verified 02/15/17 09:29) Home Medications: Medication Instructions Recorded Thiamine HCl 100 mg PO DAILY #0 tablet 09/28/16 Acetaminophen [Tylenol 325mg (*)] 650 mg PO Q4 PRN 02/04/17 Aspirin [Aspirin 81mg (*)] 81 mg PO DAILY 02/04/17 Atorvastatin Calcium [Lipitor 40 40 mg PO HS 02/04/17 mg (*)] Bisacodyl [Dulcolax] 10 mg RC DAILY PRN 02/04/17 Carbamide Peroxide [Debrox Ear 10 drop EACHEAR HS 02/04/17 drops (*)] Folic Acid 0.8 mg PO DAILY 02/04/17 Melatonin [Melatonin 3 MG (*)] 3 mg PO HS 02/04/17 Multivitamins [Multivitamin (*)] 1 each PO DAILY 02/04/17 Sennosides [Senokot] 8.6 mg PO BID 02/04/17 risperiDONE [Risperdal] 0.5 mg PO Q12 2 Days tablet 02/05/17 Aspirin 81mg (*) 02/15/17 LORAZEPAM 02/15/17 Potassium 02/15/17 Propranolol HCl 02/15/17 Remeron 02/15/17 Medical Decision Making ED Course/Re-evaluation: The patient was evaluated and managed by the physician's drafter assistant. My cosignature indicates that I reviewed the chart and I agree with the findings and plan of care as documented. I am the secondary supervising physician. ( Montse Blank) Patient is discussed with my secondary supervising physician Dr. Montse Blank. Patient presents to the emergency room for blurry vision. He is nontoxic. Vital signs are stable. Physical exam including eye exam and neurologic exam unremarkable. Baseline blood studies unremarkable. He will be discharged home. He is to follow up with the primary care doctor for recheck. Return precautions are given. (Alexis Davis) - Data Points Laboratory Results: Laboratory Results 07/23/17 21:20 07/23/17 21:20 07/23/17 07/23/17 21:20 21:20 WBC 11.79 10^3/uL H 10^3/uL (3.80-9.50) RBC 4.82 10^6/uL 10^6/uL (4.40-6.38) Hgb 13.8 g/dL g/dL (13.7-17.5) Hct 40.5 % % (40.0-51.0) MCV 84.0 fL fL (81.5-99.8) MCH 28.6 pg pg (27.9-34.1) MCHC 34.1 g/dL g/dL (32.4-36.7) RDW 13.5 % % (11.5-15.2) Plt Count 220 10^3/uL 10^3/uL (150-400) MPV 9.4 fL fL (8.7-11.7) Neut % (Auto) 62.4 % % (39.3-74.2) Lymph % (Auto) 20.5 % % (15.0-45.0) [place] % (Auto) 11.3 % % (4.5-13.0) Eos % (Auto) 4.7 % % (0.6-7.6) Baso % (Auto) 0.5 % % (0.3-1.7) Nucleat RBC Rel Count 0.0 % % (0.0-0.2) Absolute Neuts (auto) 7.35 10^3/uL H 10^3/uL (1.70-6.50) Absolute Lymphs (auto) 2.42 10^3/uL 10^3/uL (1.00-3.00) Absolute Monos (auto) 1.33 10^3/uL H 10^3/uL (0.30-0.80) Absolute Eos (auto) 0.56 10^3/uL H 10^3/uL (0.03-0.40) Absolute Basos (auto) 0.06 10^3/uL 10^3/uL (0.02-0.10) Absolute Nucleated RBC 0.00 10^3/uL 10^3/uL (0-0.01) Immature Gran % 0.6 % % (0.0-1.1) Immature Gran # 0.07 10^3/uL 10^3/uL (0.00-0.10) Sodium 143 mEq/L mEq/L (134-144) Potassium 4.2 mEq/L mEq/L (3.5-5.2) Chloride 102 mEq/L mEq/L (97-110) Carbon Dioxide 26 mEq/l mEq/l (22-31) Anion Gap 15 mEq/L mEq/L (8-16) BUN 24 mg/dL H mg/dL (7-23) Creatinine 1.1 mg/dL mg/dL (0.7-1.3) Estimated GFR > 60 Glucose 90 mg/dL mg/dL (70-100) Calcium 10.0 mg/dL mg/dL (8.5-10.4) Total Bilirubin 0.5 mg/dL mg/dL (0.1-1.4) Conjugated Bilirubin 0.3 mg/dL mg/dL (0.0-0.5) Unconjugated Bilirubin 0.2 mg/dL mg/dL (0.0-1.1) AST 30 IU/L IU/L (17-59) ALT 41 IU/L IU/L (21-72) Alkaline Phosphatase 94 IU/L IU/L (38-126) Total Protein 7.7 g/dL g/dL (6.3-8.2) Albumin 4.4 g/dL g/dL (3.5-5.0) Ethyl Alcohol < 10 mg/dL mg/dL (0-10) Departure - Departure Disposition: Home, Routine, Self-Care Clinical Impression: Blurry vision, bilateral Condition: Good Instructions: Blurred Vision (ED) Additional Instructions: Follow-up with a primary care doctor and chef under for recheck If symptoms worsen or new symptoms develop return to the emergency room for recheck Referrals: [facility],. [Clinic] - As per Instructions Patient,NotPresent [Unknown] - As per Instructions Latisha Murphy MD [Non Staff Provider (MD)] - As per Instructions
[2017-07-23 22:51] VITALS: BP 178/73; PULSE 77; TEMP 98.2; O2SAT 96
== END 2017-07-23 22:51 | disposition home or self-care (01) ==
LOC: EDUNIT#
DX: H53.8 Other visual disturbances (principal); F17.200 Nicotine dependence, unspecified, uncomplicated; I10 Essential (primary) hypertension; Z79.82 Long term (current) use of aspirin
CPT/HCPCS: G0480

== ENCOUNTER 2018-02-19 17:47 | Emergency (ER) | payer MEDICAID ==
--- NOTE | 2018-02-19 17:57 | EDPHY ---
H & P Time Seen by Provider: 02/19/18 17:54 - Medical/Surgical History Hx Asthma: No Hx Chronic Respiratory Disease: No Hx Diabetes: No Hx Cardiac Disease: No Hx Renal Disease: No Hx Cirrhosis: No Hx Alcoholism: Yes Hx HIV/AIDS: No Hx Splenectomy or Spleen Trauma: No Other PMH: PMHx: brain injury, alcoholism, Wernicke's encephalopathy, tobacco use, HTN, hypokalemia, nutritional anemia, unspecified adrenocortical insufficiency. PSHx: unk cardiac surgery - Social History Smoking Status: Current every day smoker Constitutional: Initial Vital Signs Temperature (C) 36.5 C 02/19/18 18:05 Heart Rate 88 02/19/18 18:05 Respiratory Rate 18 02/19/18 18:05 Blood Pressure 157/87 H 02/19/18 18:05 O2 Sat (%) 95 02/19/18 18:05 O2 Delivery Mode Room Air Allergies/Adverse Reactions: No Known Allergies Allergy (Verified 02/15/17 09:29) Home Medications: Medication Instructions Recorded Acetaminophen [Tylenol 325mg (*)] 650 mg PO Q4 PRN 02/04/17 Aspirin [Aspirin 81mg (*)] 81 mg PO DAILY 02/04/17 Atorvastatin Calcium [Lipitor 40 40 mg PO HS 02/04/17 mg (*)] Bisacodyl [Dulcolax] 10 mg RC DAILY PRN 02/04/17 Carbamide Peroxide [Debrox Ear 10 drop EACHEAR HS 02/04/17 drops (*)] Multivitamins [Multivitamin (*)] 1 each PO DAILY 02/04/17 Sennosides [Senokot] 8.6 mg PO BID 02/04/17 Aspirin 81mg (*) 02/15/17 Potassium 02/15/17 Propranolol HCl 02/15/17 Zoloft 100mg (*) 02/19/18 Medical Decision Making ED Course/Re-evaluation: CHIEF COMPLAINT: Psychiatric evaluation. 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 He reportedly attempted to strangle himself at [facility], so nurses called EMS for an M1 hold. On my evaluation, the patient initially states "I'm scared". When I ask about any medical history or complaints, he states " have one major problem, this is a doozy: my cervical spine is broken". When I ask when this occurred, he states it happened in 1949. He does not acknowledge any suicidal or homicidal ideation. Further HPI difficult to obtain secondary to the patient's underlying memory deficits. REVIEW OF SYSTEMS: Unable to obtain secondary to patient presentation. PHYSICAL EXAM: HR, BP, O2 Sat, RR. Temp noted General Appearance: Alert, well hydrated, appropriate, and non-toxic appearing. Head: Atraumatic without scalp tenderness or obvious injury Eyes: Pupils equal, round, reactive to light and accommodation, EOMI, no trauma , no injection. Ears: Clear bilaterally, no perforation, normal landmarks Nose: Atraumatic, no rhinorrhea, clear. Throat: There is no erythema or exudates, no lesions, normal tonsils, mucus membranes moist. Neck: Supple, nontender, no lymphadenopathy. Respiratory: No retractions, no distress, no wheezes, and no accessory muscle use. Lungs are clear to auscultation bilaterally. Cardiovascular: Regular rate and rhythm, no murmurs, rubs, or gallops. Good capillary refill all extremities. Gastrointestinal: Abdomen is soft, nontender, non-distended. Musculoskeletal: Normal active ROM of all extremities, atraumatic. Neurological: Alert, appropriate, and interactive. Nonfocal neuro exam. Skin: No rashes, good turgor, no nodules on palpation. Past medical history: Wernicke's encephalopathy, dementia secondary to alcoholism, hypertension, CAD s/p CABG. Past surgical history: CABG Family history: Noncontributory. Social history: Lives at [facility]. Current tobacco use. Single. DIFFERENTIAL DIAGNOSIS: The differential diagnosis for the patient's altered mental status included but was not limited to hypoglycemia, infectious process, electrolyte abnormality, head injury, neurologic process, anemia, cardiac process, and intoxicants. MEDICAL DECISION [id number] y/o male presents on M1 hold for reported suicidal ideation. He has history of dementia secondary to alcoholism. On my interview, the patient only complains of one medical issue - a broken spine in 1949. As the patient was born in 1950, he is quite confused. His baseline is unclear, but a waxing and waning course of mental status is chronic for him due to his dementia and Wernicke's encephalopathy. Plan for labs including CBC, chemistries, tox screen , salicylates, acetaminophen, EtOH. 18:00 Informed by nurses that this patient is likely on an invalid hold. Per nurse report at the facility, the patient had tried to strangle himself with a belt for three minutes. Per brim pouncing machine operator report, patient denies this event, denies suicidal ideation, and has no injuries consistent with this. The patient does not acknowledge any suicidal ideation on my interview as well. Laboratory studies largely unremarkable. Negative EtOH, salicylates, acetaminophen. 18:23 Case management spoke with staff at [facility]. Plan to discharge the patient home in good condition.They request that [facility]. We will recommend this to the patient. We will arrange transportation back to [facility] for him. - Data Points Laboratory Results: Laboratory Results 02/19/18 18:10 02/19/18 18:10 02/19/18 02/19/18 18:10 18:10 WBC 11.06 10^3/uL H 10^3/uL (3.80-9.50) RBC 4.98 10^6/uL 10^6/uL (4.40-6.38) Hgb 13.8 g/dL g/dL (13.7-17.5) Hct 40.4 % % (40.0-51.0) MCV 81.1 fL L fL (81.5-99.8) MCH 27.7 pg L pg (27.9-34.1) MCHC 34.2 g/dL g/dL (32.4-36.7) RDW 13.5 % % (11.5-15.2) Plt Count 219 10^3/uL 10^3/uL (150-400) MPV 10.1 fL fL (8.7-11.7) Neut % (Auto) 60.0 % % (39.3-74.2) Lymph % (Auto) 17.6 % % (15.0-45.0) [place] % (Auto) 12.6 % % (4.5-13.0) Eos % (Auto) 9.0 % H % (0.6-7.6) Baso % (Auto) 0.5 % % (0.3-1.7) Nucleat RBC Rel Count 0.0 % % (0.0-0.2) Absolute Neuts (auto) 6.63 10^3/uL H 10^3/uL (1.70-6.50) Absolute Lymphs (auto) 1.95 10^3/uL 10^3/uL (1.00-3.00) Absolute Monos (auto) 1.39 10^3/uL H 10^3/uL (0.30-0.80) Absolute Eos (auto) 1.00 10^3/uL H 10^3/uL (0.03-0.40) Absolute Basos (auto) 0.06 10^3/uL 10^3/uL (0.02-0.10) Absolute Nucleated RBC 0.00 10^3/uL 10^3/uL (0-0.01) Immature Gran % 0.3 % % (0.0-1.1) Immature Gran # 0.03 10^3/uL 10^3/uL (0.00-0.10) Sodium 140 mEq/L mEq/L (135-145) Potassium 4.1 mEq/L mEq/L (3.3-5.0) Chloride 108 mEq/L mEq/L (97-110) Carbon Dioxide 21 mEq/l L mEq/l (22-31) Anion Gap 11 mEq/L mEq/L (8-16) BUN 26 mg/dL H mg/dL (7-23) Creatinine 1.1 mg/dL mg/dL (0.7-1.3) Estimated GFR > 60 Glucose 110 mg/dL H mg/dL (70-100) Calcium 9.7 mg/dL mg/dL (8.5-10.4) Salicylates < 1.0 mg/dL L mg/dL (2.0-20.0) Acetaminophen < 10 mcg/mL L mcg/mL (10-30) Ethyl Alcohol < 10 mg/dL mg/dL (0-10) Departure - Departure Disposition: Home, Routine, Self-Care Clinical Impression: Reported suicidal ideation, none current, Confusion Condition: Good Instructions: Altered Mental Status (ED) Additional Instructions: [facility] follow [facility] with [facility]. Referrals[facility],. [Clinic] - As per Instructions Report Scribed for: Dipak Dunn Report Scribed by: Liberty Brenner Date of Report: 02/19/18 Time of Report: 18:30
[2018-02-19 18:17] LABS: PLATELET COUNT 219 10^3/uL (150-400)
--- NOTE | 2018-02-19 18:45 | ASMTCMCOM ---
CM Note CM Note Notes: Pt presented to the ED via EMS from [facility] after he reportedly had been found with a belt wrapped around his neck for 3 minutes. Pt does not acknowledge this happened and when asked whether he is suicidal, patient denies SI and HI. Pt was sent to the ED with an invalid mental health hold (it was not completely filled out and not signed). Multiple attempts were made to contact ([phone]) to receive further clarification and report but no one ever answered. Spoke w/Elizabeth w/Mak[employer] at ([phone]) and she contacted the medical care administrator. Elizabeth called back and said their claim administrator said to send pt back to and they will provided 1:1 supervision throughout the night and have [facility] follow-up with patient. Elizabeth said to transport pt via [facility] and to have them bill per her request/permission. [facility] wheelchair transport arranged, ETA 1915. CM available for further assistance if needed. Date Signed: 02/19/2018 06:44 PM Electronically Signed By:Reyna Robertson RN
--- NOTE | 2018-02-19 18:46 | ASDISCHSUM ---
Discharge Information Plan Status:SNF Medically Cleared to Leave: Discharge Date: D/C Disposition:Nursing Home Facility ADT D/C Disposition:Home, Routine, Self-Care Projected Discharge Date: Transportation at D/C:ALS/BLS Discharge Delay Reason: Follow-Up Date: Discharge Slot: Final Diagnosis: Placement Information Patient Contact Information Contact Name:KHURRAM Relationship: Address:[address] Work Phone: City:[facility] [facility] Phone: State/Zip Code:[place] [address] Email: Financial Information Financial Class:Medicaid Primary Plan Desc:MEDICA[employer] HEALTH [employer] Primary Plan Number:[id number] Secondary Plan Desc: Secondary Plan Number: Assessment Information [facility] CM Progress Note CM Note CM Note Notes: Pt presented to the ED via EMS from [facility] after he reportedly had been found with a belt wrapped around his neck for 3 minutes. Pt does not acknowledge this happened and when asked whether he is suicidal, patient denies SI and HI. Pt was sent to the ED with an invalid mental health hold (it was not completely filled out and not signed). Multiple attempts were made to contact ([phone]) to receive further clarification and report but no one ever answered. Spoke w/Elizabeth w/Makayla at ([phone]) and she contacted the business intelligence administrator. Elizabeth called back and said their engineer system administrator said to send pt back to and they will provided 1:1 supervision throughout the night and have [facility] follow-up with patient. Elizabeth said to transport pt via [facility] and to have them bill per her request/permission. [facility] wheelchair transport arranged, ETA 1915. available for further assistance if needed. Date Signed: 02/19/2018 06:44 PM Electronically Signed By:Reyna Robertson RN Intervention Information Intervention Type:Post Acute Communication Date of Service:02/19/2018 06:44 PM Patient Type:Emergency Room Staff Member:CARLOS A Robertson [place] Hours:0.25 Discipline:Facilities Maintenance Manager Severity: Comment: Intervention Type:Transportation Date of Service:02/19/2018 06:44 PM Patient Type:Emergency Room Staff Member:CARLOS A Robertson [place] Hours:0.25 Discipline:Facilities Maintenance Manager Severity: Comment:
[2018-02-19 19:38] VITALS: BP 148/86
== END 2018-02-19 19:45 | disposition home or self-care (01) ==
LOC: EDUNIT#
DX: R45.851 Suicidal ideations (principal)
CPT/HCPCS: G0480